=== PATIENT | female | born 1985 | race American Indian/Alaskan Native ===

== ENCOUNTER 2018-11-06 10:01 | Emergency (ER) | payer MEDICAID ==
[2018-11-06 10:37] VITALS: BP 114/78; PULSE 75; RESP 18; TEMP 98.9; O2SAT 100
--- NOTE | 2018-11-06 10:56 | C.PDOC ---
History Of Present Illness 33 y/o female presents to the ED complaining of a sore throat since yesterday. Associated with a subjective fever, did not take temp at home. She reports (+) sick contact in a coworker's child who was at work yesterday, who was diagnosed with strep. Patient states she saw white bumps on her tongue and is concerned for strep. Otherwise she denies any chills, bodyaches, nausea, vomiting, diarrhea, ear pain, or productive cough. Reports a mild headache described as "feeling full and stuffy." Time Seen by Provider: 11/06/18 10:45 Chief Complaint (Nursing): ENT Problem History Per: Patient History/Exam Limitations: None Onset/Duration Of Symptoms: Days Current Symptoms Are (Timing): Still Present Past Medical History Reviewed: Historical Data, Nursing Documentation, Vital Signs Vital Signs: Last Vital Signs Temp 98.9 F 11/06/18 10:33 Pulse 75 11/06/18 10:33 Resp 18 11/06/18 10:33 BP 114/78 11/06/18 10:33 Pulse Ox 100 11/06/18 10:33 - Medical History PMH: No Chronic Diseases Surgical History: No Surg Hx Family History: States: No Known Family Hx - Social History Hx Alcohol Use: No Hx Substance Use: No - Immunization History Hx Tetanus Toxoid Vaccination: No Hx Influenza Vaccination: No Hx Pneumococcal Vaccination: No Review Of Systems Except As Marked, All Systems Reviewed And Found Negative. Constitutional: Negative for: Fever, Chills ENT: Positive for: Throat Pain. Negative for: Ear Pain, Nose Congestion Respiratory: Negative for: Cough, Shortness of Breath Gastrointestinal: Negative for: Nausea, Vomiting, Abdominal Pain, Diarrhea Neurological: Positive for: Headache Physical Exam - Physical Exam Appears: Well, Non-toxic, No Acute Distress Skin: Normal Color, Warm, Dry Head: Atraumatic, Normacephalic Eye(s): bilateral: Normal Inspection, PERRL, EOMI Ear(s): Bilateral: Normal (no erythema) Oral Mucosa: Moist Tongue: Normal Appearing, Other (normal landmarks) Throat: Erythema (mild pharyngeal erythema), No Exudate (1 small white spot to the right tonsil, no real exudates), No Drooling Neck: Normal ROM, Supple Respiratory: No Accessory Muscle Use, Other (speaking in full sentences) Pulses: Left Radial: Normal, Right Radial: Normal Neurological/Psych: Oriented x3, Normal Speech ED Course And Treatment O2 Sat by Pulse Oximetry: 100 (RA) Pulse Ox Interpretation: Normal Medical Decision Making Medical Decision Making: Impression: Pharyngitis Plan: --Motrin PO for pain control --Ordered rapid strep test, per request of patient Labs reviewed: strep negative Patient educated regarding results and clinical diagnosis. Plan is to discharge home, advised motrin for pain control. Disposition Counseled Patient/Family Regarding: Studies Performed, Diagnosis, Need For Followup, Rx Given - Disposition Disposition: HOME/ ROUTINE Disposition Time: 12:06 Condition: STABLE Instructions: Viral Pharyngitis (DC) Forms: [facility] (French), Work Excuse, General Discharge Instructions - POA Present On Arrival: None - Clinical Impression Clinical Impression: Pharyngitis - Scribe Statement The provider has reviewed the documentation as recorded by the Ravi Turpin Provider Attestation: All medical record entries made by the Kennaibrolando were at my direction and personally dictated by me. I have reviewed the chart and agree that the record accurately reflects my personal performance of the history, physical exam, medical decision making, and the department course for this patient. I have also personally directed, reviewed, and agree with the discharge instructions and disposition.
== END 2018-11-06 12:19 | disposition home or self-care (01) ==
LOC: C.ER 10:01
DX: J02.9 Acute pharyngitis, unspecified (principal)

== ENCOUNTER 2019-02-12 10:24 | Emergency (ER) | payer MEDICAID ==
[2019-02-12 10:36] VITALS: BP 112/76; PULSE 83; RESP 18; TEMP 98.1; O2SAT 99
--- NOTE | 2019-02-12 11:45 | C.PDOC ---
History Of Present Illness 33 y/o female presents to the ED for evaluation of toe pain since yesterday. Patient states she was running around and hit her right 5th toe on the door, since then the area has been painful and swollen. She denies any other injuries. Patient is concerned for broken toe. Otherwise she denies any open wounds, sensory changes, or other complaints. Time Seen by Provider: 02/12/19 10:39 Chief Complaint (Nursing): Lower Extremity Problem/Injury History Per: Patient History/Exam Limitations: no limitations Onset/Duration Of Symptoms: Days (x 1) Current Symptoms Are (Timing): Still Present Past Medical History Reviewed: Historical Data, Nursing Documentation, Vital Signs Vital Signs: Last Vital Signs Temp 98.1 F 02/12/19 10:33 Pulse 83 02/12/19 10:33 Resp 18 02/12/19 10:33 BP 112/76 02/12/19 10:33 Pulse Ox 99 02/12/19 10:33 - Medical History PMH: No Chronic Diseases Surgical History: Hernia Repair, Family History: States: No Known Family Hx - Social History Hx Alcohol Use: No Hx Substance Use: No - Immunization History Hx Tetanus Toxoid Vaccination: No Hx Influenza Vaccination: No Hx Pneumococcal Vaccination: No Review Of Systems Constitutional: Negative for: Fever, Chills Respiratory: Negative for: Shortness of Breath Gastrointestinal: Negative for: Vomiting Musculoskeletal: Positive for: Foot Pain (Right 5th toe pain/swelling) Skin: Negative for: Lesions Neurological: Negative for: Weakness, Numbness, Incoordination Physical Exam - Physical Exam Appears: Non-toxic, No Acute Distress Skin: Warm, Dry, No Rash Head: Atraumatic, Normacephalic Eye(s): bilateral: Normal Inspection, PERRL, EOMI Neck: Normal ROM Chest: Symmetrical Respiratory: No Accessory Muscle Use Extremity: Tenderness (of 5th digit on right foot; Rest of the foot is non- tender), Capillary Refill (< 2 sec), No Deformity, Swelling (moderate swelling of 5th digit on right foot), Other (Decreased ROM of right 5th digit, sensation is intact) Pulses: Left Dorsalis Pedis: Normal, Right Dorsalis Pedis: Normal Neurological/Psych: Oriented x3, Normal Motor, Normal Sensation ED Course And Treatment O2 Sat by Pulse Oximetry: 99 (RA) Pulse Ox Interpretation: Normal Progress Note: Patient treated with 650 mg PO Tylenol for pain control. X-ray obtained, showing +fracture of right 5th digit. Plan is to discharge patient home, advised to follow up with podiatry for further evaluation. Disposition Counseled Patient/Family Regarding: Studies Performed, Diagnosis, Need For Followup, Rx Given - Disposition Referrals: [facility] [Outside] Disposition: HOME/ ROUTINE Disposition Time: 11:45 Condition: STABLE Additional Instructions: FOLLOW UP WITH PODIATRY WITHIN 1 WEEK ELEVATE YOUR FOOT MUCH POSSIBLE USE MOTRIN OR TYLENOL NEEDED FOR PAIN RETURN TO ER IF SYMPTOMS WORSEN Prescriptions: Acetaminophen [Tylenol 325mg tab] 650 mg PO Q6 PRN #30 tab PRN Reason: pain/fever Instructions: Toe Fracture (DC) Forms: [employer] (Yemeni) Print Language: ALBANIAN - Clinical Impression Clinical Impression: Fracture of fifth toe, right, closed - Scribe Statement The provider has reviewed the documentation as recorded by the Ravi Turpin Provider Attestation: All medical record entries made by the Kennaibrolando were at my direction and personally dictated by me. I have reviewed the chart and agree that the record accurately reflects my personal performance of the history, physical exam, medical decision making, and the department course for this patient. I have also personally directed, reviewed, and agree with the discharge instructions and disposition.
--- NOTE | 2019-02-12 12:27 | RAD ---
Date of service: 02/12/2019 PROCEDURE: HISTORY: RIGHT 5TH TOE INJURY R/O FX COMPARISON: No prior study available comparison TECHNIQUE: AP view of the foot and 2 additional cone-down views of the 5th toe performed FINDINGS: Current study reveals a chip fracture arising from the medial aspect base of the distal phalanx 5th toe which extends through the joint space margin. Questionable slight lateral subluxation of the distal phalanx with respect to the proximal phalanx IMPRESSION: Chip fracture arising from the medial aspect base of the distal phalanx 5th toe which extends through the joint space margin. Questionable slight lateral subluxation of the distal phalanx with respect to the proximal phalanx
== END 2019-02-12 12:07 | disposition home or self-care (01) ==
LOC: C.ER 10:24
DX: S92.531A Displaced fracture of distal phalanx of right lesser toe(s), initial encounter for closed fracture (principal); W22.8XXA Striking against or struck by other objects, initial encounter; Y93.02 Activity, running